=== PATIENT | female | born 1990 | race African-American/Black ===

== ENCOUNTER 2016-12-07 18:09 | Emergency (ER) | payer OTHER ==
[~2016-12-07 18:09] MED LIST: DOCU100T8 PO; IBUP80TA PO; TYLE167L PO
--- NOTE | 2016-12-07 20:06 | EDDOCDS ---
Nurse's Notes [facility] Name: Katrina Ashford Age: 25 yrs Sex: Female : 1990 Arrival Date: 12/07/2016 Time: 18:09 Bed PR Private MD: ADRYAN Dougherty Diagnosis: Hematuria Presentation: 12/07 18:20 Presenting complaint: Patient states: Dark urine for past couple of days. Denies pain ld5 or burning with urination. Adult Sepsis Screening: The patient does not have new or worsening altered mentation. Patient's respiratory rate is less than 22. Systolic blood pressure is greater than 100. Patient has a qSOFA score of 0- Negative Sepsis Screen. Suicide/Homicide risk assessment- the patient denies having any suicidal and/or homicidal ideations and does not present with any other emotional, behavioral or mental health complaints. 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 Transition of care: patient was not received from another setting of care. 18:20 Acuity: BHAKTI Level 5 ld5 18:20 Method Of Arrival: Walkin/Carried/Asstd ld5 Triage Assessment: 18:22 General: Appears in no apparent distress. Pain: Denies pain. HIV screening NA for this ld5 visit Offered previously. Neurological: Level of Consciousness is awake, alert. : Reports dark urine Denies burning with urination, pain with urination. 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 none - PMHx: none; - PSHx: none; - Social history: Smoking status: Patient states was never smoker of tobacco. No barriers to communication noted, The patient speaks fluent Irish, Speaks appropriately for age. - Family history: Not pertinent. - : The pt / caregiver states he / she is not on anticoagulants. Home medication list is obtained from the patient. - Exposure Risk Screening:: None identified. Screenin:03 Screening information is obtained from the patient. Fall risk: No risks identified. [facility] Assistance ADL's: requires no assistance with activities of daily living. Abuse/DV Screen: The patient / caregiver reports he/she is: not in a situation that causes fear, pain or injury. Nutritional screening: No deficits noted. Advance Directives: There is no active DNR order. home support is adequate. Assessment: 20:03 General: Appears in no apparent distress, comfortable, Behavior is appropriate for age, [facility] cooperative. Neurological: Level of Consciousness is awake, alert, Oriented to person, place, time. Respiratory: Airway is patent Respiratory effort is even, unlabored, Respiratory pattern is regular, symmetrical. Derm: Skin is pink, warm & dry. Vital Signs: 18:11 BP 138 / 70; Pulse 65; Resp 16; Temp 97.6(O); Pulse Ox 100% on R/A; Weight 68.04 kg; sew Height 64 in. (162.56 cm); Pain 0/10; 20:03 BP 130 / 70; Pulse 73; Resp 18; Temp 97.0(T); Pulse Ox 99% on R/A; jb5 18:11 Body Mass Index 25.75 (68.04 kg, 162.56 cm) [facility] Vitals: 18:11 Log In Time: December 07, 2016 at 18:11. [facility] ED Course: 18:10 Patient visited by Carlene Zimmerman. sew 18:10 Ladonna [facility] is Private Physician. sew 18:10 Patient moved to Waiting sew 18:12 Patient visited by Carlene Zimmerman. sew 18:12 Patient moved to Pre RCE sew 18:21 Triage Initiated ld5 18:22 Patient visited by Jennifer Lorenz,ABENR. ld5 18:39 Patient moved to Triage 3 ld5 18:48 [facility] cc10 18:48 Golden Gifford MD is Attending Physician. cc10 18:50 UA Sent. [facility] 18:59 Patient visited by Delon Montano PA-C. cc10 18:59 Patient visited by Delon Montano PA-C. cc10 19:20 Patient moved to TR2 cz 19:[address] cz 19:29 Patient moved to TR2 jb5 19:36 Patient moved to PR1 / 25 cz 19:38 [place] Payment Agreement was scanned into [employer] and attached to record. jp5 19:50 RONALD Dougherty is Referral Physician. cc10 20:00 Patient visited by Donna Lomeli PCA. jb5 20:00 GC & Chlamydia Amplification Sent. jb5 20:03 The patient / caregiver is instructed regarding the plan of care and ED course. [facility] 20:03 No IV's were initiated during this patient's visit. No procedures done that require [facility] assistance. 20:04 Patient visited by Donna Lomeli PCA. jb5 Point of Care Testing: Urine : 18:52 hCG Reading: Negative; Control Reading: Positive; ld5 Ranges: Order Results: Lab Order: UA; SPEC'M 12/07/16 18:46 Test: APPEARANCE, URINE; Value: HAZY; Range: CLEAR; Status: F Test: COLOR, URINE; Value: BRANDI; Range: YELLOW; Status: F Test: PH,URINE; Value: 5.0; Range: 5.0-9.0; Units: UNITS; Status: F Test: SPECIFIC GRAVITY URINE AUTO; Value: 1.031; Range: 1.002-1.035; Status: F Test: PROTEIN, URINE AUTO; Value: 2+; Range: NEGATIVE; Abnormal: Above high normal; Units: mg/dL; Status: F Test: GLUCOSE, URINE (UA) AUTO; Value: NEGATIVE; Range: NEGATIVE; Units: mg/dL; Status: F Test: KETONE, URINE AUTO; Value: TRACE; Range: NEGATIVE; Abnormal: Above high normal; Units: mg/dL; Status: F Test: UROBILINOGEN, URINE AUTO; Value: 0.2; Range: 0.0-2.0; Units: mg/dL; Status: F Test: BILIRUBIN, URINE AUTO; Value: NEGATIVE; Range: NEGATIVE; Status: F Test: NITRITE, URINE AUTO; Value: NEGATIVE; Range: NEGATIVE; Status: F Test: LEUKOCYTE ESTERASE, URINE AUTO; Value: NEGATIVE; Range: NEGATIVE; Status: F Test: BLOOD, URINE BLOOD; Value: 3+; Range: NEGATIVE; Abnormal: Above high normal; Status: F Test: WBC, URINE AUTO; Value: 9; Range: 0-3; Abnormal: Above high normal; Units: /HPF; Status: F Test: RBC, URINE AUTO; Value: 4; Range: 0-3; Abnormal: Above high normal; Units: /HPF; Status: F Test: BACTERIA, URINE AUTO; Value: NEGATIVE; Range: NEGATIVE; Status: F Test: SQUAMOUS EPITHELIAL CELL UR AU; Value: 3; Range: 0-6; Units: /HPF; Status: F Test: MUCUS, URINE; Value: MODERATE; Range: NEGATIVE; Status: F Test: HYALINE CAST, URINE AUTO; Value: 0; Range: 0-1; Units: /LPF; Status: F Test: AMORPHOUS SEDIMENT; Value: SMALL; Range: NEGATIVE; Abnormal: Above high normal; Status: F Outcome: 19:50 Discharge ordered by Provider. cc10 20:03 Discharge Assessment: Patient awake, alert and oriented x 3. No cognitive and/or [facility] functional deficits noted. Patient verbalized understanding of disposition instructions. patient administered narcotics - no. The following High Risk Discharge criteria are identified: None. Discharged to home ambulatory. Condition: good Condition: stable Condition: improved. Discharge instructions given to patient, Instructed on discharge instructions, follow up and referral plans. Demonstrated understanding of instructions, Pt was receptive of discharge instructions/ teaching. No special radiology studies were completed. Property :Personal belongings accompany Pt. 20:06 Patient left the ED. [facility] Signatures: Tulio Ortiz, RN RN Donna Gomez, KAREEM ASSISTANT OFFICE MANAGER jb5 Jennifer Lorenz RN RN 5 Helga Mcdaniel RN RN [facility] Carlene Zimmerman Colin, PA-C PA-C cc10 Jon Renee jp5 EDUARDO
--- NOTE | 2016-12-07 20:06 | EDDOCDS ---
Physician Documentation [facility] Name: Katrina Ashford Age: 25 yrs Sex: Female : 1990 Arrival Date: 12/07/2016 Time: 18:09 Bed PR Private MD: ADRYAN Dougherty Disposition: 12/07/16 19:50 Discharged to Home/Self Care. Impression: Hematuria. - Condition is Stable. - Discharge Instructions: Hematuria, Adult. - Medication Reconciliation form. - Follow up: Emergency Department; When: As needed; Reason: Worsening of conditions. Follow up: ADRYAN Dougherty; When: Call to arrange an appointment; Reason: Wound/Symptom Recheck, Recheck today's complaints, Worsening of conditions, Continuance of care. - Problem is an ongoing problem. - Symptoms are unchanged. Historical: - Allergies: no known allergies; - Home Meds: 1. none - PMHx: none; - PSHx: none; - Social history: Smoking status: Patient states was never smoker of tobacco. No barriers to communication noted, The patient speaks fluent Guyanese, Speaks appropriately for age. - Family history: Not pertinent. - : The pt / caregiver states he / she is not on anticoagulants. Home medication list is obtained from the patient. - Exposure Risk Screening:: None identified. 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 (162.56 cm); Pain 0/10; 20:03 BP 130 / 70; Pulse 73; Resp 18; Temp 97.0(T); Pulse Ox 99% on R/A; jb5 18:11 Body Mass Index 25.75 (68.04 kg, 162.56 cm) sew MDM: 18:42 UCG by Nursing ordered. cc10 18:42 UA Ordered. EDMS 19:17 CT ABD & PELVIS: No Contrast Ordered. EDMS 19:38 [place] Agreement was scanned into [employer] and attached to record. jp5 19:39 Financial registration complete. jp5 19:50 GC & Chlamydia Amplification Ordered. EDMS Point of Care Testing: Urine : 18:52 hCG Reading: Negative; Control Reading: Positive; ld5 Ranges: Signatures: Dispatcher [employer] Jennifer ShafferRN RN ld5 Helga Mcdaniel RN RN Delon Tilley, PA-C PA-C cc10 Jon Renee jp5 The chart was reviewed and I authenticate all verbal orders and agree with the evaluation and treatment provided.Attachments: 19:38 [facility] Payment Agreement jp5 MTDD
--- NOTE | 2016-12-08 07:32 | REP ---
CT study abdomen and pelvis without IV or oral contrast: Renal stone protocol. History: Hematuria. CT findings: Preliminary cavalry scout radiograph is unremarkable. An IUD is noted in the pelvis. Axial CT images demonstrate that the lung bases are clear. The liver and the spleen are homogeneous in texture and normal in size. No adrenal lesion is seen. There is no evidence of hydronephrosis or intrarenal calculus on either side. Kidneys are morphologically intact. Pancreas is unremarkable. No gallbladder abnormality is seen. The IUD is seen within the uterus on the pelvic CT images. No adnexal masses seen. No free fluid is noted. Small and large intestinal bowel loops are unremarkable. The bladder is virtually empty but otherwise unremarkable. A normal appendix is seen in the right lower quadrant. Impression: No CT evidence of urinary tract calculus or hydronephrosis on either side. IUD noted in the uterus. Otherwise unremarkable CT study of the abdomen and pelvis. Signed by Errol Marie MD 12/08/2016 08:46 A
--- NOTE | 2016-12-11 09:47 | EDDOCDS ---
Physician Documentation [facility] Name: Katrina Ashford Age: 25 yrs Sex: Female : 1990 Arrival Date: 12/07/2016 Time: 18:09 Bed PR Private MD: ADRYAN Dougherty Disposition: 12/07/16 19:50 Discharged to Home/Self Care. Impression: Hematuria. - Condition is Stable. - Discharge Instructions: Hematuria, Adult. - Medication Reconciliation form. - Follow up: Emergency Department; When: As needed; Reason: Worsening of conditions. Follow up: ADRYAN Dougherty; When: Call to arrange an appointment; Reason: Wound/Symptom Recheck, Recheck today's complaints, Worsening of conditions, Continuance of care. - Problem is an ongoing problem. - Symptoms are unchanged. Historical: - Allergies: no known allergies; - Home Meds: 1. none - PMHx: none; - PSHx: none; - Social history: Smoking status: Patient states was never smoker of tobacco. No barriers to communication noted, The patient speaks fluent Lithuanian, Speaks appropriately for age. - Family history: Not pertinent. - : The pt / caregiver states he / she is not on anticoagulants. Home medication list is obtained from the patient. - Exposure Risk Screening:: None identified. 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 (162.56 cm); Pain 0/10; 20:03 BP 130 / 70; Pulse 73; Resp 18; Temp 97.0(T); Pulse Ox 99% on R/A; jb5 18:11 Body Mass Index 25.75 (68.04 kg, 162.56 cm) sew MDM: 18:42 UCG by Nursing ordered. cc10 18:42 UA Ordered. EDMS 19:17 CT ABD & PELVIS: No Contrast Ordered. EDMS 19:38 [place] [place] Payment Agreement was scanned into [employer] and attached to record. jp5 19:39 Financial registration complete. jp5 19:50 GC & Chlamydia Amplification Ordered. EDMS 12/08 08:37 T-Sheet-- Draft Copy was scanned into [employer] and attached to record. [facility] Point of Care Testing: Urine : 12/07 18:52 hCG Reading: Negative; Control Reading: Positive; ld5 Ranges: Signatures: Dispatcher [employer] Jennifer Shaffer,RN RN ld5 Helga McdanielRN RN [facility] Delon Montano PA-C PAChichi adams10 Jon Renee jp5 Carlene Multani se The chart was reviewed and I authenticate all verbal orders and agree with the evaluation and treatment provided.Attachments: 19:38 [facility] Payment Agreement jp5 12/08 08:37 T-Sheet-- Draft Copy [facility] Chart Complete MTDD
--- NOTE | 2016-12-11 09:47 | EDDOCDS ---
Physician Documentation [facility] Name: Katrina Ashford Age: 25 yrs Sex: Female : 1990 Arrival Date: 12/07/2016 Time: 18:09 Bed PR Private MD: ADRYAN Dougherty Disposition: 12/07/16 19:50 Discharged to Home/Self Care. Impression: Hematuria. - Condition is Stable. - Discharge Instructions: Hematuria, Adult. - Medication Reconciliation form. - Follow up: Emergency Department; When: As needed; Reason: Worsening of conditions. Follow up: ADRYAN Dougherty; When: Call to arrange an appointment; Reason: Wound/Symptom Recheck, Recheck today's complaints, Worsening of conditions, Continuance of care. - Problem is an ongoing problem. - Symptoms are unchanged. Historical: - Allergies: no known allergies; - Home Meds: 1. none - PMHx: none; - PSHx: none; - Social history: Smoking status: Patient states was never smoker of tobacco. No barriers to communication noted, The patient speaks fluent Ethiopian, Speaks appropriately for age. - Family history: Not pertinent. - : The pt / caregiver states he / she is not on anticoagulants. Home medication list is obtained from the patient. - Exposure Risk Screening:: None identified. 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 (162.56 cm); Pain 0/10; 20:03 BP 130 / 70; Pulse 73; Resp 18; Temp 97.0(T); Pulse Ox 99% on R/A; jb5 18:11 Body Mass Index 25.75 (68.04 kg, 162.56 cm) sew MDM: 18:42 UCG by Nursing ordered. cc10 18:42 UA Ordered. EDMS 19:17 CT ABD & PELVIS: No Contrast Ordered. EDMS 19:38 [place] [place] Agreement was scanned into [employer] and attached to record. jp5 19:39 Financial registration complete. jp5 19:50 GC & Chlamydia Amplification Ordered. EDMS 12/08 08:37 T-Sheet-- Draft Copy was scanned into [employer] and attached to record. [facility] Point of Care Testing: Urine : 12/07 18:52 hCG Reading: Negative; Control Reading: Positive; ld5 Ranges: Signatures: Dispatcher [employer] Jennifer Shaffer,RN RN ld5 Helga McdanielRN RN [facility] Delon Montano PA-C PAChichi adams10 Jon Renee jp5 Carlene Multani se The chart was reviewed and I authenticate all verbal orders and agree with the evaluation and treatment provided.Attachments: 19:38 [facility] Payment Agreement jp5 12/08 08:37 T-Sheet-- Draft Copy [facility] Chart Complete MTDD
--- NOTE | 2016-12-11 09:47 | EDDOCDS ---
Nurse's Notes [facility] Name: Katrina Ashford Age: 25 yrs Sex: Female : 1990 Arrival Date: 12/07/2016 Time: 18:09 Bed PR Private MD: ADRYAN Dougherty Diagnosis: Hematuria Presentation: 12/07 18:20 Presenting complaint: Patient states: Dark urine for past couple of days. Denies pain ld5 or burning with urination. Adult Sepsis Screening: The patient does not have new or worsening altered mentation. Patient's respiratory rate is less than 22. Systolic blood pressure is greater than 100. Patient has a qSOFA score of 0- Negative Sepsis Screen. Suicide/Homicide risk assessment- the patient denies having any suicidal and/or homicidal ideations and does not present with any other emotional, behavioral or mental health complaints. 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 18:20 Acuity: BHAKTI Level 5 ld5 18:20 Method Of Arrival: Walkin/Carried/Asstd ld5 Triage Assessment: 18:22 General: Appears in no apparent distress. Pain: Denies pain. HIV screening NA for this ld5 visit Offered previously. Neurological: Level of Consciousness is awake, alert. : Reports dark urine Denies burning with urination, pain with urination. 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 none - PMHx: none; - PSHx: none; - Social history: Smoking status: Patient states was never smoker of tobacco. No barriers to communication noted, The patient speaks fluent Japanese, Speaks appropriately for age. - Family history: Not pertinent. - : The pt / caregiver states he / she is not on anticoagulants. Home medication list is obtained from the patient. - Exposure Risk Screening:: None identified. Screenin:03 Screening information is obtained from the patient. Fall risk: No risks identified. [facility] Assistance ADL's: requires no assistance with activities of daily living. Abuse/DV Screen: The patient / caregiver reports he/she is: not in a situation that causes fear, pain or injury. Nutritional screening: No deficits noted. Advance Directives: There is no active DNR order. home support is adequate. Assessment: 20:03 General: Appears in no apparent distress, comfortable, Behavior is appropriate for age, [facility] cooperative. Neurological: Level of Consciousness is awake, alert, Oriented to person, place, time. Respiratory: Airway is patent Respiratory effort is even, unlabored, Respiratory pattern is regular, symmetrical. Derm: Skin is pink, warm & dry. Vital Signs: 18:11 BP 138 / 70; Pulse 65; Resp 16; Temp 97.6(O); Pulse Ox 100% on R/A; Weight 68.04 kg; sew Height 64 in. (162.56 cm); Pain 0/10; 20:03 BP 130 / 70; Pulse 73; Resp 18; Temp 97.0(T); Pulse Ox 99% on R/A; jb5 18:11 Body Mass Index 25.75 (68.04 kg, 162.56 cm) [facility] [place] Vitals: 18:11 Log In Time: December 07, 2016 at 18:11. [facility] [place] ED Course: 18:10 Patient visited by Carlene Zimmerman. sew 18:10 Ladonna [facility] is Private Physician. sew 18:10 Patient moved to Waiting sew 18:12 Patient visited by Carlene Zimmerman. sew 18:12 Patient moved to Pre RCE sew 18:21 Triage Initiated ld5 18:22 Patient visited by Jennifer Lorenz,ABNER. ld5 18:39 Patient moved to Triage 3 ld5 18:48 [facility] cc[facility] 18:48 Golden Gifford MD is Attending Physician. cc10 18:50 [facility]A Sent[facility] 18:59 Patient visited by Delon Montano PA-C. cc10 18:59 Patient visited by Delon Montano PA-C. cc10 19:20 Patient moved to TR2 cz 19:[address] cz 19:29 Patient moved to TR2 jb5 19:36 Patient moved to PR1 / 25 cz 19:38 [facility] [place] Payment Agreement was scanned into [employer] and attached to record. jp5 19:50 RONALD Dougherty is Referral Physician. cc10 20:00 Patient visited by Donna Lomeli PCA. jb5 20:00 GC & Chlamydia Amplification Sent. jb5 20:03 The patient / caregiver is instructed regarding the plan of care and ED course. [facility] 20:03 No IV's were initiated during this patient's visit. No procedures done that require [facility] assistance. 20:04 Patient visited by Donna Lomeli PCA. jb5 12/08 07:36 CT ABD & PELVIS: No Contrast Returned. EDMS 08:37 T-Sheet-- Draft Copy was scanned into [employer] and attached to record. [facility] Point of Care Testing: Urine : 12/07 18:52 hCG Reading: Negative; Control Reading: Positive; ld5 Ranges: Order Results: Lab Order: UA; SPEC'M 12/07/16 18:46 Test: APPEARANCE, URINE; Value: HAZY; Range: CLEAR; Status: F Test: COLOR, URINE; Value: BRANDI; Range: YELLOW; Status: F Test: PH,URINE; Value: 5.0; Range: 5.0-9.0; Units: UNITS; Status: F Test: SPECIFIC GRAVITY URINE AUTO; Value: 1.031; Range: 1.002-1.035; Status: F Test: PROTEIN, URINE AUTO; Value: 2+; Range: NEGATIVE; Abnormal: Above high normal; Units: mg/dL; Status: F Test: GLUCOSE, URINE (UA) AUTO; Value: NEGATIVE; Range: NEGATIVE; Units: mg/dL; Status: F Test: KETONE, URINE AUTO; Value: TRACE; Range: NEGATIVE; Abnormal: Above high normal; Units: mg/dL; Status: F Test: UROBILINOGEN, URINE AUTO; Value: 0.2; Range: 0.0-2.0; Units: mg/dL; Status: F Test: BILIRUBIN, URINE AUTO; Value: NEGATIVE; Range: NEGATIVE; Status: F Test: NITRITE, URINE AUTO; Value: NEGATIVE; Range: NEGATIVE; Status: F Test: LEUKOCYTE ESTERASE, URINE AUTO; Value: NEGATIVE; Range: NEGATIVE; Status: F Test: BLOOD, URINE BLOOD; Value: 3+; Range: NEGATIVE; Abnormal: Above high normal; Status: F Test: WBC, URINE AUTO; Value: 9; Range: 0-3; Abnormal: Above high normal; Units: /HPF; Status: F Test: RBC, URINE AUTO; Value: 4; Range: 0-3; Abnormal: Above high normal; Units: /HPF; Status: F Test: BACTERIA, URINE AUTO; Value: NEGATIVE; Range: NEGATIVE; Status: F Test: SQUAMOUS EPITHELIAL CELL UR AU; Value: 3; Range: 0-6; Units: /HPF; Status: F Test: MUCUS, URINE; Value: MODERATE; Range: NEGATIVE; Status: F Test: HYALINE CAST, URINE AUTO; Value: 0; Range: 0-1; Units: /LPF; Status: F Test: AMORPHOUS SEDIMENT; Value: SMALL; Range: NEGATIVE; Abnormal: Above high normal; Status: F Lab Order: GC & Chlamydia Amplification; SPEC'M 12/07/16 20:00 Test: CHLAMYDIA DNA AMPLIFICATION; Value: NEGATIVE; Range: NEGATIVE; Status: F Test: GC DNA AMPLIFICATION; Value: NEGATIVE; Range: NEGATIVE; Status: F Radiology Order: CT ABD & PELVIS: No Contrast Test: CT ABD & PELVIS: No Contrast REASON FOR EXAMINATION: hematuria; CT study abdomen and pelvis without IV or oral contrast: Renal stone protocol.; ; History: Hematuria.; ; CT findings: Preliminary guidance consultant radiograph is unremarkable. An IUD is noted in; the pelvis.; ; Axial CT images demonstrate that the lung bases are clear. The liver and the; spleen are homogeneous in texture and normal in size. No adrenal lesion is seen.; There is no evidence of hydronephrosis or intrarenal calculus on either side.; Kidneys are morphologically intact. Pancreas is unremarkable. No gallbladder; abnormality is seen. The IUD is seen within the uterus on the pelvic CT images.; No adnexal masses seen. No free fluid is noted. Small and large intestinal; bowel loops are unremarkable. The bladder is virtually empty but otherwise; unremarkable. A normal appendix is seen in the right lower quadrant.; ; Impression:; ; No CT evidence of urinary tract calculus or hydronephrosis on either side. IUD; noted in the uterus. Otherwise unremarkable CT study of the abdomen and pelvis.; ; ; Signed by; Errol Marie MD 12/08/2016 08:46 A; Outcome: 19:50 Discharge ordered by Provider. cc10 20:03 Discharge Assessment: Patient awake, alert and oriented x 3. No cognitive and/or cjh functional deficits noted. Patient verbalized understanding of disposition instructions. patient administered narcotics - no. The following High Risk Discharge criteria are identified: None. Discharged to home ambulatory. Condition: good Condition: stable Condition: improved. Discharge instructions given to patient, Instructed on discharge instructions, follow up and referral plans. Demonstrated understanding of instructions, Pt was receptive of discharge instructions/ teaching. No special radiology studies were completed. Property :Personal belongings accompany Pt. 20:06 Patient left the ED. [facility] Signatures: Dispatcher [employer] EDTulio Arnold, RN RN Donna Gomez, KAREEM DIRECTOR CLINICAL DATA jb5 Jennifer Lorenz RN RN ld5 Helga McdanielRN RN [facility] Carlene Zimmerman Colin, PA-C PA-C ccJon Powell Sarah seh Chart Complete MTDD
== END 2016-12-07 20:06 | disposition home or self-care (01) ==
LOC: M ED 18:09
DX: R31.9 Hematuria, unspecified (principal)